=== PATIENT | female | born 1955 | race Caucasian/White ===

== ENCOUNTER 2017-06-26 09:20 | Outpatient (CLI) | payer OTHER ==
--- NOTE | 2017-06-26 18:33 | Diagnostic Imaging Report ---
MACARIO HOWELL [facility] [address] [facility] [address] [address] Report Submission Date: Jun 26, 2017 9:46:50 AM [employer] Patient Study Name: MICAELA OAKES Date: Jun 26, 2017 9:29:25 AM [employer] Modality Type: DX Gender: F Description: SPINE : 57 Institution: [facility] Physician: MACARIO HOWELL Examination: Cervical spine History: C-SPINE, NECK PAIN X6 MONTHS, NO KNOWN INJURY, PT STATES SHE CARRIES A BACKPACK TO WORK (Hx) Comparison exams: None available Findings: 3 views of the cervical spine demonstrates extensive osteophyte formation. No anterior compression. Mild listhesis C3/C4. Disc space narrowing C4/C5 through C7/T1. Extensive facet degenerative changes. No odontoid abnormality. No prevertebral abnormality Impression: Extensive degenerative changes. No anterior compression. If patient is experiencing neurologic symptoms, consider obtaining MRI to further evaluate. Electronically signed on Jun 26, 2017 9:46:50 AM [employer] by: Charbel VILLAVICENCIO
== END 2017-06-26 09:30 ==
LOC: RAD 09:20
PROVIDERS: ATTEND Family Medicine
DX: M54.2 Cervicalgia (principal)
CPT/HCPCS: 72040